=== PATIENT | male | born 1960 | race Asian ===

== ENCOUNTER 2017-05-24 13:31 | Emergency (ER) | payer OTHER ==
[~2017-05-24] VITALS: Ht 167.6 cm; Wt 69.1 kg
[2017-05-24] MEDS ORDERED: BENA10TA3 PO (14:31)
[2017-05-24] MEDS ORDERED: HYDR25TA PO (14:31)
[2017-05-24 16:17] LABS: BASOPHILS % (AUTO) 0.9 % (0.0-2.0); EOSINOPHILS % (AUTO) 0.8 % (1.0-6.0); HEMOGLOBIN 15.3 g/dL (13.5-17.5); LYMPHOCYTES # (AUTO) 1.4 K/uL (1.0-4.8); LYMPHOCYTES % (AUTO) 12.6 % (22.0-44.0); MEAN CORPUSCULAR HEMOGLOBIN 30.6 pg (26.0-34.0); MEAN CORPUSCULAR HGB CONC 34.7 G/dL (31.0-37.0); MEAN CORPUSCULAR VOLUME 88 fL (80-100); MONOCYTES # (AUTO) 0.6 K/uL (0.1-1.0); NEUTROPHILS # (AUTO) 8.7 K/uL (1.8-7.7); NEUTROPHILS % (AUTO) 79.7 % (40.0-70.0); PLATELET COUNT (AUTO) 296 K/uL (150-450); RED BLOOD CELL COUNT(AUTO) 4.99 MIL/uL (4.50-5.90); RED CELL DISTRIBUTION WIDTH 12.4 % (11.5-14.5)
[2017-05-24 16:33] LABS: ANION GAP 12 mmol/L (8-16); CALCIUM, TOTAL 9.5 mg/dL (8.8-10.5); CARBON DIOXIDE 28 mmol/L (22-29); CHLORIDE 99 mmol/L (98-107); CREATININE 1.03 mg/dL (0.60-1.30); GLOMERULAR FILTR. RATE CALC > 60 mL/min (>60); GLUCOSE,RANDOM 91 mg/dL (70-110); POTASSIUM 3.3 mmol/L (3.5-5.1); SODIUM SERUM 139 mmol/L (136-145); UREA NITROGEN, BLOOD 26 mg/dL (7-18)
[2017-05-24 16:37] LABS: ALANINE AMINOTRANSFERASE 47 U/L (12-78); ALBUMIN 4.4 g/dL (3.4-5.0); ALKALINE PHOSPHATASE 127 U/L (46-116); ASPARTATE AMINOTRANSFERASE 21 U/L (15-37); BILIRUBIN,TOTAL 0.5 mg/dL (0.1-1.0); C-REACTIVE PROTEIN QUANT 3.34 mg/dL (0.00-0.30); TOTAL PROTEIN, SERUM 8.6 g/dL (6.4-8.2)
[2017-05-24 16:47] LABS: URIC ACID 8.7 mg/dL (2.6-7.2)
[2017-05-24] MEDS ORDERED: POVIDONE-IODINE 10% 15 ML SOLUTION UD TP ONE (17:30)
[2017-05-24] MEDS ORDERED: LIDOCAINE HCL 1% 10 ML VIAL INJ ONE (17:30)
[2017-05-24 18:07] LABS: SPECIMENTYPE,BODY FLUID SYNOVIAL
[2017-05-24 18:58] LABS: CRYSTALS, SYNOVIAL FLUID None Seen (None Seen)
[2017-05-24 19:03] LABS: APPEARANCE,SPUN,BODY FLUID CLOUDY (CLEAR); COLOR,BODY FLUID RED (LT YELLOW)
[2017-05-24 19:04] LABS: APPEARANCE,UNSPUN,BODY FLUID CLOUDY (CLEAR); TOTAL VOLUME,BODY FLUID 3 mL; WBC, BODY FLUID 153 /cu. mm.
[2017-05-24 19:18] LABS: BASOPHILS,BODY FLUID 0 %; EOSINOPHILS,BF (ANAL) 0 %; LYMPHOCYTES,BODY FLUID 49 %; MONOCYTES,BODY FLUID 9 %; NEUTROPHILS,BODY FLUID 42 %; OTHER CELLS,BODY FLUID 0
[2017-05-24] MEDS ORDERED: IBUPROFEN 800 MG TABLET PO ONE (19:30)
[2017-05-24 21:25] VITALS: BP 121/68
== END 2017-05-24 22:08 | disposition home or self-care (01) ==
LOC: EMS 13:34
DX: M25.462 Effusion, left knee (principal); I10 Essential (primary) hypertension; E78.00 Pure hypercholesterolemia, unspecified
CPT/HCPCS: 20610; 36415; 73562; 80053; 84550; 85025; 86140; 87040; 87070; 87205; 89051; 89060; 99285; J3490